=== PATIENT | female | born 1975 | race Caucasian/White ===

== ENCOUNTER 2016-08-03 11:02 | Day surgery (SDC) | payer BC ==
[~2016-08-03 11:02] MED LIST: FLONASE ALLERG9.9 ML; GUMMI BEAR MUL1 EAC1 PO; LEXAPRO10 M2 PO; MIRALAX17 GM PO; NORCO 5/3251 TA1 PO; PRENATAL1 TAB PO; SENOKOT-S TABLE1 TAB PO; SYNTHROID112 MC1 PO; TEMOVATE15 GM TOP; TRINESSA TABLE1 EACH PO; VITAMIN D50000 UNI2 PO; XYZAL5 M1 PO
[2016-08-04] MEDS ORDERED: PERCOCET 5-3251 EACH PO (07:56)
== END 2016-08-04 11:00 ==
LOC: WSU 11:02 → SHSB 11:03 → ORW 12:58 → PACU 14:38 → OBGE 15:55
PROC: 0UT94ZZ Resection of Uterus, Percutaneous Endoscopic Approach (ICD-10-PCS; principal; 2016-08-03)
PROC: 0UTC4ZZ Resection of Cervix, Percutaneous Endoscopic Approach (ICD-10-PCS; 2016-08-03)
PROC: 0UT74ZZ Resection of Bilateral Fallopian Tubes, Percutaneous Endoscopic Approach (ICD-10-PCS; 2016-08-03)
PROC: 8E0W4CZ Robotic Assisted Procedure of Trunk Region, Percutaneous Endoscopic Approach (ICD-10-PCS; 2016-08-03)
DX: N80.0 Endometriosis of uterus (principal); D25.9 Leiomyoma of uterus, unspecified; N73.6 Female pelvic peritoneal adhesions (postinfective); E03.9 Hypothyroidism, unspecified; E66.01 Morbid (severe) obesity due to excess calories; Z68.39 Body mass index [BMI] 39.0-39.9, adult; Z88.2 Allergy status to sulfonamides; Z90.49 Acquired absence of other specified parts of digestive tract; Z98.890 Other specified postprocedural states
CPT/HCPCS: J0690; J1170; J7030